=== PATIENT | male | born 1980 | race Caucasian/White ===

== ENCOUNTER 2020-04-05 09:31 | Emergency (ER) | payer SELFPAY ==
[2020-04-05] MEDS ORDERED: Ondansetron PF 4 MG/2 ML Vial ONE (09:43)
[2020-04-05] MEDS ORDERED: Morphine 4 MG/ML VIAL ONE (09:43)
[2020-04-05 09:56] LABS: #Eosinphils 0.1 thou/uL (0.0-0.7); #Lymphocytes 2.7 thou/uL (1.20-3.40); #Monocytes 0.8 thou/uL (0.11-0.59); #Neutrophils 3.5 thou/uL (1.40-6.50); %Basophils 0.6 % (0.0-1.0); %Eosinophils 1.7 % (0.0-10.0); %Monocytes 11.4 % (0.0-10.0); %Neutrophils 49.3 % (42.0-75.0); Hemoglobin 16.2 g/dL (14.0-18.0); Mean Corpuscular HGB CONC 32.9 g/dL (32.0-36.0); Mean Corpuscular Hemoglobin 29.4 pg (27.0-31.0); Mean Corpuscular Volume 89.5 fL (78.0-98.0); Mean Platelet Volume 6.3 fL (7.4-10.4); Platelet Count 254 thou/uL (130-400); RBC Distribution Width 12.5 % (11.5-14.5); Red Blood Cell (RBC) Count 5.51 mill/uL (4.70-6.10); White Blood Cell (WBC) Count 7.2 thou/uL (4.8-10.8)
--- NOTE | 2020-04-05 10:04 | CT ---
Exam: CT brain PROVIDED CLINICAL HISTORY: Trauma COMPARISON: None FINDINGS: The ventricular system is normal in size and morphology. No evidence for intracranial hemorrhage or mass effect. There is trace simple appearing fluid in right maxillary sinus. The extracranial soft tissues and osseous structures appear otherwise unremarkable as visualized. IMPRESSION: No evidence for intracranial hemorrhage or mass effect.
--- NOTE | 2020-04-05 10:07 | CT ---
EXAM: CT Facial Bones WO Con PROVIDED CLINICAL HISTORY: Trauma COMPARISON: None FINDINGS: There is no evidence for fracture. There is trace simple fluid in the right maxillary sinus. Mucus re tention cysts are seen within each maxillary sinus. The globes and other orbital contents appear normal. IMPRESSION: No evidence for fracture.
--- NOTE | 2020-04-05 10:09 | CT ---
EXAM: CT cervical spine PROVIDED CLINICAL HISTORY: Trauma COMPARISON: None FINDINGS: No evidence for fracture or traumatic subluxation. No prevertebral soft tissue swelling apparent. Vi sualized lung apices appear clear. IMPRESSION: No evidence for fracture or traumatic subluxation.
--- NOTE | 2020-04-05 10:10 | RAD ---
EXAM: Portable supine chest PROVIDED CLINICAL HISTORY: Trauma COMPARISON: None FINDINGS: The cardiac silhouette appears enlarged, likely least partially on the basis of portable technique. T here is elevation of the right hemidiaphragm of unknown chronicity. No focal consolidation is evident. There is no pleural fluid or pneumothorax apparent, with limitations due to the supine natur e the study. The bony thorax appears grossly intact. IMPRESSION: No evidence for an acute cardiopulmonary process.
[2020-04-05 10:17] LABS: ALT (SGPT) 48 U/L (8-55); AST (SGOT) 42 U/L (5-34); Albumin 4.4 g/dL (3.5-5.0); Alcohol Less than 10 mg/dL (Less than 10); Alkaline Phosphatase 79 U/L (40-110); Anion Gap 24 mmol/L (10-20); BUN (Urea Nitrogen) 14 mg/dL (8.9-20.6); Bilirubin, Total 0.4 mg/dL (0.2-1.2); Calc. Creatinine Clearance 0 mL/min (70-130); Calcium 9.3 mg/dL (7.8-10.44); Carbon Dioxide 17 mmol/L (22-29); Chloride 103 mmol/L (98-107); Globulin 2.9 g/dL (2.4-3.5); Glucose 155 mg/dL (70-105); Potassium 4.1 mmol/L (3.5-5.1); Protein, Total 7.3 g/dL (6.0-8.3); Sodium 140 mmol/L (136-145)
[2020-04-05] MEDS ORDERED: Boostrix 0.5 ML (Tdap) VIAL ONE (10:44)
[2020-04-05 11:37] LABS: Bacteria/HPF None Seen HPF (None Seen); Bilirubin Negative (Negative); Blood, Urine 1+ (Negative); Clarity Clear (Clear); Glucose, Urine (Dipstick) 200 mg/dL (Negative); Ketone, Urine Trace mg/dL (Negative); Leukocyte Negative Leu/uL (Negative); Nitrite Negative (Negative); Protein, Urine (Dipstick) 200 mg/dL (Neg-Trace); RBC/HPF 0-3 HPF (0-3); Specific Gravity, Urine 1.021 (1.002-1.036); Squamous Epithelial 0-3 HPF (0-3); Urobilinogen Normal mg/dL (Less than 2); WBC/HPF 0-3 HPF (0-3); pH, Urine 6.5 (5.0-9.0)
[2020-04-05] MEDS ORDERED: Bacitracin 1 PK ONE (11:51)
[2020-04-05] MEDS ORDERED: Fentanyl 100 MCG/2 ML VIAL ONE (12:03)
[2020-04-05] MEDS ORDERED: Lidocaine 1% w/Epinephrine 1:100K 20 ML VIAL ONE ×2 (12:22→12:23)
[2020-04-05] MEDS ORDERED: Lidocaine 1% PF 5 ML VIAL ONE (12:25)
[2020-04-05 12:46] LABS: Anion Gap 14 mmol/L (10-20); BUN (Urea Nitrogen) 10 mg/dL (8.9-20.6); Calc. Creatinine Clearance 0 mL/min (70-130); Calcium 8.2 mg/dL (7.8-10.44); Carbon Dioxide 25 mmol/L (22-29); Chloride 106 mmol/L (98-107); Glucose 145 mg/dL (70-105); Potassium 3.5 mmol/L (3.5-5.1); Sodium 141 mmol/L (136-145)
[2020-04-05 12:59] LABS: Bicarbonate (HCO3v) 26.4 mmol/L (22.0-28.0); CO2 Tension (PvCO2) 53.8 mmHg (40.0-50.0); Calcium, Ionized 1.13 mmol/L (1.15-1.33); Chloride 106 mmol/L (98-107); Hemoglobin - Calc 14.3 g/dL (14.0-18.0); Potassium 3.3 mmol/L (3.5-5.1); Sodium 142 mmol/L (138-145); T. Carbon Dioxide 28.1 mmol/L (22.0-28.0); vO2 Saturation-calc 74.2 % (60.0-85.0)
== END 2020-04-05 13:24 | disposition home or self-care (01) ==
LOC: ERS 09:31
DX: S06.9X9A Unspecified intracranial injury with loss of consciousness of unspecified duration, initial encounter (principal); S02.5XXA Fracture of tooth (traumatic), initial encounter for closed fracture; S01.511A Laceration without foreign body of lip, initial encounter; F17.210 Nicotine dependence, cigarettes, uncomplicated; Y04.0XXA Assault by unarmed brawl or fight, initial encounter
CPT/HCPCS: 12011; 70450; 70486; 71045; 72125; 80053; 80307; 81003; 81015; 82010; 82330; 82803; 85025; 90471; 90715; 96365; 96375; G0390; J0690; J2270; J2405; J3010

== ENCOUNTER 2021-04-27 02:34 | Observation (INO) | payer SELFPAY ==
[2021-04-27] MEDS ORDERED: Aspirin 325 MG TAB ONE (03:20)
[2021-04-27 03:23] LABS: #Basophils 0.1 thou/uL (0.0-0.2); #Eosinphils 0.2 thou/uL (0.0-0.7); #Lymphocytes 3.4 thou/uL (1.20-3.40); #Monocytes 1.3 thou/uL (0.11-0.59); #Neutrophils 5.8 thou/uL (1.40-6.50); %Basophils 0.5 % (0.0-1.0); %Eosinophils 1.5 % (0.0-10.0); %Lymphocytes 31.9 % (21.0-51.0); %Neutrophils 54.1 % (42.0-75.0); Hemoglobin 16.4 g/dL (14.0-18.0); Mean Corpuscular HGB CONC 32.9 g/dL (32.0-36.0); Mean Corpuscular Hemoglobin 29.1 pg (27.0-31.0); Mean Corpuscular Volume 88.4 fL (78.0-98.0); Mean Platelet Volume 6.1 fL (7.4-10.4); Platelet Count 247 thou/uL (130-400); Red Blood Cell (RBC) Count 5.63 mill/uL (4.70-6.10); White Blood Cell (WBC) Count 10.8 thou/uL (4.8-10.8)
[2021-04-27 03:41] LABS: INR-International Normal Ratio 0.8; PTT 27.4 sec (22.9-36.1); Prothrombin Time 11.5 sec (12.0-14.7)
[2021-04-27 04:01] LABS: ALT (SGPT) 51 U/L (8-55); AST (SGOT) 27 U/L (5-34); Albumin 4.2 g/dL (3.5-5.0); Alkaline Phosphatase 77 U/L (40-110); Anion Gap 13 mmol/L (10-20); BUN (Urea Nitrogen) 7 mg/dL (8.9-20.6); Bilirubin, Total 0.4 mg/dL (0.2-1.2); Calc. Creatinine Clearance 0 mL/min (70-130); Calcium 9.6 mg/dL (7.8-10.44); Carbon Dioxide 25 mmol/L (22-29); Chloride 102 mmol/L (98-107); Globulin 3.1 g/dL (2.4-3.5); Glucose 134 mg/dL (70-105); Potassium 4.1 mmol/L (3.5-5.1); Protein, Total 7.3 g/dL (6.0-8.3); Sodium 136 mmol/L (136-145)
[2021-04-27 04:06] LABS: Bilirubin Negative (Negative); Blood, Urine Negative (Negative); Clarity Clear (Clear); Glucose, Urine (Dipstick) 50 mg/dL (Negative); Ketone, Urine Negative (Negative); Leukocyte Negative Leu/uL (Negative); Nitrite Negative (Negative); Protein, Urine (Dipstick) Negative (Neg-Trace); Specific Gravity, Urine 1.033 (1.002-1.036); Urobilinogen Normal mg/dL (Less than 2); pH, Urine 6.5 (5.0-9.0)
[2021-04-27 04:10] LABS: Acetaminophen Less than 6.0 mcg/mL (10.0-30.0); Alcohol Less than 10 mg/dL (Less than 10); Salicylate Less than 8.0 mg/dL (15.0-30.0)
[2021-04-27 07:24] LABS: Troponin I Less than 0.010 ng/mL (< 0.028)
[2021-04-27 08:46] LABS: Troponin I Less than 0.010 ng/mL (< 0.028)
[2021-04-27 09:15] VITALS: BMI 31.9
[2021-04-27] MEDS ORDERED: Iopamidol 370 76% 100 ML VIAL ONE (09:43)
[2021-04-27 15:30] LABS: SARS-CoV-2 PCR by NAA Not Detected (NotDetected)
[2021-04-27] MEDS: Cyclobenzaprine 10 MG TAB PO PRN (16:28)
[2021-04-27] MEDS: Acetaminophen 325 MG TAB PO PRN (16:29)
[2021-04-27 17:10] LABS: Cardiac Risk 4.3 (Less than 4.5)
[2021-04-27] MEDS: Ketorolac Tromethamine 30 MG/ML VIAL IVP PRN (17:30)
[2021-04-27] MEDS: Amoxicillin/Potassium Clav 875 MG TAB PO SCH (21:36)
[2021-04-27] MEDS: Carbamide Peroxide 6.5% Otic Drops 15 ml Bottle EA EAR SCH (21:36)
[2021-04-28] MEDS: Cyclobenzaprine 10 MG TAB PO PRN ×2 (08:53→16:23)
[2021-04-28] MEDS: Amoxicillin/Potassium Clav 875 MG TAB PO SCH (08:54)
[2021-04-28] MEDS: Acetaminophen 325 MG TAB PO PRN ×2 (08:54→16:24)
[2021-04-28] MEDS: Carbamide Peroxide 6.5% Otic Drops 15 ml Bottle EA EAR SCH (08:55)
[2021-04-28] MEDS ORDERED: Aspirin 81 mg Enteric Coated Tablet PO SCH (09:00)
[2021-04-28] MEDS: Ketorolac Tromethamine 30 MG/ML VIAL IVP PRN ×2 (10:52→16:35)
[2021-04-28 12:07] VITALS: TEMP 97.6
[2021-04-28 16:19] VITALS: BP 110/67
== END 2021-04-28 17:20 | disposition home or self-care (01) ==
LOC: ERS 02:34 → 2NO 04:24
PROVIDERS: ADMIT Internal Medicine; ATTEND Internal Medicine
DX: R20.0 Anesthesia of skin (principal); R47.81 Slurred speech; R51.9 Headache, unspecified; G71.00 Muscular dystrophy, unspecified; I10 Essential (primary) hypertension; E11.9 Type 2 diabetes mellitus without complications; H92.02 Otalgia, left ear; F12.11 Cannabis abuse, in remission; J32.8 Other chronic sinusitis; I07.1 Rheumatic tricuspid insufficiency; Z87.891 Personal history of nicotine dependence; Z79.84 Long term (current) use of oral hypoglycemic drugs; Z79.899 Other long term (current) drug therapy; Z20.822 Contact with and (suspected) exposure to COVID-19
CPT/HCPCS: 36415; 36416; 70450; 70496; 70498; 70551; 80053; 80061; 80307; 81003; 82550; 84443; 84484; 85025; 85610; 85730; 93005; 93306; 96374; G0378; J1885; Q9967; U0003; U0005

== ENCOUNTER 2023-03-01 21:47 | Emergency (ER) | payer BC, SELFPAY ==
[2023-03-01 22:18] LABS: #Eosinphils 0.1 thou/uL (0.0-0.7); #Monocytes 0.7 thou/uL (0.11-0.59); #Neutrophils 3.9 thou/uL (1.40-6.50); %Basophils 0.3 % (0.0-1.0); %Eosinophils 1.3 % (0.0-10.0); %Monocytes 9.1 % (0.0-10.0); %Neutrophils 52.2 % (42.0-75.0); Hematocrit 48.4 % (42.0-52.0); Hemoglobin 16.4 g/dL (14.0-18.0); Mean Corpuscular HGB CONC 33.9 g/dL (32.0-36.0); Mean Corpuscular Hemoglobin 29.3 pg (27.0-31.0); Mean Corpuscular Volume 86.6 fl (78.0-98.0); Mean Platelet Volume 8.6 fL (7.4-10.4); Platelet Count 274 10x3/uL (130-400); Red Blood Cell (RBC) Count 5.59 mill/uL (4.70-6.10); White Blood Cell (WBC) Count 7.6 10x3/uL (4.8-10.8)
[2023-03-01 22:39] LABS: ALT (SGPT) 46 U/L (8-55); AST (SGOT) 24 U/L (5-34); Albumin 4.7 g/dL (3.5-5.0); Alkaline Phosphatase 75 U/L (40-110); Anion Gap 16 mmol/L (10-20); BUN (Urea Nitrogen) 13 mg/dL (8.9-20.6); Bilirubin, Total 0.4 mg/dL (0.2-1.2); Calc. Creatinine Clearance 0 mL/min (70-130); Calcium 9.5 mg/dL (7.8-10.44); Carbon Dioxide 24 mmol/L (22-29); Chloride 104 mmol/L (98-107); Estimated GFR 117; Globulin 2.6 g/dL (2.4-3.5); Glucose 229 mg/dL (70-105); Potassium 3.7 mmol/L (3.5-5.1); Protein, Total 7.3 g/dL (6.0-8.3); Sodium 140 mmol/L (136-145)
[2023-03-01 22:43] LABS: Troponin I Less than 0.010 ng/mL (< 0.028)
== END 2023-03-01 23:05 | disposition home or self-care (01) ==
LOC: ERS 21:47
DX: R07.89 Other chest pain (principal); R42 Dizziness and giddiness; F43.0 Acute stress reaction; I10 Essential (primary) hypertension; E11.9 Type 2 diabetes mellitus without complications; F17.210 Nicotine dependence, cigarettes, uncomplicated
CPT/HCPCS: 71045; 80053; 84484; 85025; 93005; 94760

== ENCOUNTER 2024-04-18 17:33 | Emergency (ER) | payer BC ==
[2024-04-18] MEDS ORDERED: Lidocaine Viscous Sol 2% 15 ml UD Cup ONE (19:29)
[2024-04-18] MEDS ORDERED: Mag-Al 1200 mg/1200 mg/30 ML UDCUP ONE (19:29)
[2024-04-18 19:47] LABS: #Basophils Less than 0.03 10x3/uL (0.0-0.2); %Basophils 0.2 % (0.0-1.0); %Eosinophils 3.2 % (0.0-10.0); %Lymphocytes 37.5 % (21.0-51.0); %Monocytes 10.1 % (0.0-10.0); %Neutrophils 48.8 % (42.0-75.0); Hematocrit 53.3 % (42.0-52.0); Hemoglobin 17.7 g/dL (14.0-18.0); Mean Corpuscular HGB CONC 33.2 g/dL (32.0-36.0); Mean Corpuscular Volume 87.2 fL (78.0-98.0); Mean Platelet Volume 8.5 fL (7.4-10.4); Platelet Count 273 10x3/uL (130-400); Red Blood Cell (RBC) Count 6.11 mill/uL (4.70-6.10)
[2024-04-18 20:02] LABS: ALT (SGPT) 24 U/L (8-55); AST (SGOT) 17 U/L (5-34); Albumin 4.1 g/dL (3.5-5.0); Alkaline Phosphatase 81 U/L (40-110); Anion Gap 15 mmol/L (10-20); BUN (Urea Nitrogen) 8 mg/dL (8.9-20.6); Bilirubin, Total 0.4 mg/dL (0.2-1.2); Calc. Creatinine Clearance 0 mL/min (70-130); Calcium 10.2 mg/dL (7.8-10.44); Carbon Dioxide 30 mmol/L (22-29); Chloride 100 mmol/L (98-107); Estimated GFR 119; Globulin 3.8 g/dL (2.4-3.5); Glucose 112 mg/dL (70-105); Lipase 95 U/L (8-78); Potassium 4.8 mmol/L (3.5-5.1); Protein, Total 7.9 g/dL (6.0-8.3); Sodium 140 mmol/L (136-145)
[2024-04-18 20:06] LABS: Troponin I Less than 0.010 ng/mL (< 0.028)
== END 2024-04-18 20:35 | disposition home or self-care (01) ==
LOC: ERS 17:33
DX: R07.9 Chest pain, unspecified (principal); I10 Essential (primary) hypertension; E11.9 Type 2 diabetes mellitus without complications; F17.210 Nicotine dependence, cigarettes, uncomplicated; Z79.84 Long term (current) use of oral hypoglycemic drugs; Z79.899 Other long term (current) drug therapy
CPT/HCPCS: 36415; 71045; 80053; 83690; 84484; 85025; 93005

== ENCOUNTER 2025-02-08 06:18 | Emergency (ER) | payer BC | END 2025-02-08 07:26 | disposition home or self-care (01) | LOC: ERS 06:18 | DX: M62.838 Other muscle spasm (principal); R47.81 Slurred speech; I10 Essential (primary) hypertension; E11.9 Type 2 diabetes mellitus without complications; F17.210 Nicotine dependence, cigarettes, uncomplicated; W19.XXXA Unspecified fall, initial encounter | CPT/HCPCS: 70450 ==